=== PATIENT | male | born 1960 | race Caucasian/White ===

== ENCOUNTER 2016-10-17 08:17 | Outpatient (RCR) | payer OTHER ==
[~2016-10-17 08:17] MED LIST: /ESCI20TA OR; ABIL10TA OR; ACET65TA OR; ADDE10TA OR; AMBI10TA PO; AMLO10TA PO; BACITAB OR; BACT800T OR; DOCU10CA PO; FOLI1TAB2 PO; GABA-283 PO; LISI20TA5 OR; NORV5TAB OR; PERC2.5T PO; SIMV10TA2 OR; TRICOR OR; TYL325 RE; adderall OR; albuterol inhaler INH; lexapro OR; soma OR; vicodin OR
== END 2016-10-22 ==
LOC: M PT 08:17
PROVIDERS: ATTEND Neurological Surgery
DX: M47.812 Spondylosis without myelopathy or radiculopathy, cervical region (principal)

== ENCOUNTER 2016-11-07 08:56 | Outpatient (RCR) | payer OTHER | END 2016-11-08 15:41 | disposition home or self-care (01) | LOC: M PT 08:56 | PROVIDERS: ATTEND Neurological Surgery | DX: M47.812 Spondylosis without myelopathy or radiculopathy, cervical region (principal) ==